=== PATIENT | male | born 1950 | race Two or more races ===

== ENCOUNTER 2021-11-26 10:43 | Emergency (ER) | payer OTHER, MEDICAID ==
[2021-11-26] MEDS ORDERED: LORazepam 0.5 MG TAB PO ONE (13:15)
[2021-11-26 16:45] VITALS: BP 153/98
== END 2021-11-26 17:00 | disposition home or self-care (01) ==
LOC: ER 10:43 → EDBD 10:43 → ER 17:00
DX: F41.9 Anxiety disorder, unspecified (principal)